=== PATIENT | male | born 1965 | race Caucasian/White ===

== ENCOUNTER 2017-12-06 12:57 | Inpatient (IN) | payer SELFPAY ==
[~2017-12-06] VITALS: Ht 175.3 cm; Wt 83.9 kg
[2017-12-06] MEDS ORDERED: IPRATRPIUM/ALBUTEROL 0.5/2.5MG 3 ML NEBU. NEB ONE (13:15)
[2017-12-06] MEDS ORDERED: methylPREDNISolone SOD SUCC PF 125 MG/2 ML VIAL. IM ONE (13:15)
--- NOTE | 2017-12-06 13:25 | PHYS DOC ---
Adult General Chief Complaint Chief Complaint: Congestion HPI HPI Patient is a 52 year old male with a history of hypertension and pack a day smoker presents to the ED complaining of headache and congestion 3 days. Patient states he has a history of sinus infections. Last sinus infection was approximately 1 year ago. Patient states he has high blood pressure. Been taking his medicine for the last year. States he has not been seen by his doctor. Patient's blood pressure is elevated in the ED. Patient states he used to take lisinopril 20 mg. Requesting prescription refill to restart him on his lisinopril. He states he took it without any complications in the past. Associated symptoms include rhinorrhea. Denies chest pain, shortness of breath, nausea/vomiting, dizziness, weakness, vision changes, abdominal pain or fever. Review of Systems Review of Systems Constitutional: Denies fever or chills [] Eyes: Denies change in visual acuity, redness, or eye pain [] HENT: Complains of nasal congestion. Denies sore throat [] Respiratory: Complains of cough. Denies shortness of breath [] Cardiovascular: No additional information not addressed in HPI [] GI: Denies abdominal pain, nausea, vomiting, bloody stools or diarrhea [] : Denies dysuria or hematuria [] Musculoskeletal: Denies back pain or joint pain [] Integument: Denies rash or skin lesions [] Neurologic: Complains of headache. Denies focal weakness or sensory changes [] All other systems were reviewed and found to be within normal limits, except as documented in this note. Current Medications Current Medications Current Medications Medications (Trade) Dose Ordered Sig/Leela Start Time Stop Time Status Last Admin Dose Admin Acetaminophen/ Hydrocodone Bitart (Lortab 5/325) 1 tab 1X ONCE 12/06/17 14:45 12/06/17 14:45 DC Albuterol/ Ipratropium (Duoneb) 3 ml 1X ONCE 12/06/17 13:15 12/06/17 13:18 DC 12/06/17 13:41 3 ML Lisinopril (Prinivil) 20 mg 1X ONCE 12/06/17 14:45 12/06/17 14:45 DC Methylprednisolone Sodium Succinate (SOLU-Medrol 125MG VIAL) 125 mg 1X ONCE 12/06/17 13:15 12/06/17 13:18 DC 12/06/17 14:09 125 MG Allergies Allergies Allergies Coded Allergies Type Severity Reaction Last Updated Verified No Known Drug Allergies 12/06/17 No Physical Exam Physical Exam Constitutional: Well developed, well nourished, no acute distress, non-toxic appearance. [] HENT: Normocephalic, atraumatic, bilateral external ears normal, oropharynx moist, no oral exudates, nose normal. mild pharyngeal erythema. Mild bilateral and maxillary sinus tenderness. [] Eyes: PERRLA, EOMI, conjunctiva normal, no discharge. [] Neck: Normal range of motion, no tenderness, supple, no stridor. [] Cardiovascular:Heart rate regular rhythm, no murmur [] Lungs & Thorax: Bilateral breath sounds. Mild wheezing bilaterally. [] Abdomen: Bowel sounds normal, soft, no tenderness, no masses, no pulsatile masses. [] Skin: Warm, dry, no erythema, no rash. [] Back: No tenderness, no CVA tenderness. [] Extremities: No tenderness, no cyanosis, no clubbing, ROM intact, no edema. [] Neurologic: Alert and oriented X 3, normal motor function, normal sensory function, no focal deficits noted. [] Psychologic: Affect normal, judgement normal, mood normal. [] Current Patient Data Vital Signs Vital Signs Date Time Temp Pulse Resp B/P (MAP) Pulse Ox O2 Delivery O2 Flow Rate FiO2 12/06/17 14:10 92 16 198/121 (146) 98 Room Air 12/06/17 13:04 97.8 97.8 Lab Values Laboratory Tests Test 12/06/17 14:50 White Blood Count 10.0 x10^3/uL (4.0-11.0) Red Blood Count 4.66 x10^6/uL (4.30-5.70) Hemoglobin 14.4 g/dL (13.0-17.5) Hematocrit 41.8 % (39.0-53.0) Mean Corpuscular Volume 90 fL (79-100) Mean Corpuscular Hemoglobin 31 pg (25-35) Mean Corpuscular Hemoglobin Concent 34 g/dL (31-37) Red Cell Distribution Width 14.7 % (11.5-14.5) H Platelet Count 274 x10^3/uL (140-400) Neutrophils (%) (Auto) 65 % (31-73) Lymphocytes (%) (Auto) 25 % (24-48) Monocytes (%) (Auto) 7 % (0-9) Eosinophils (%) (Auto) 3 % (0-3) Basophils (%) (Auto) 1 % (0-3) Neutrophils # (Auto) 6.5 x10^3uL (1.8-7.7) Lymphocytes # (Auto) 2.5 x10^3/uL (1.0-4.8) Monocytes # (Auto) 0.6 x10^3/uL (0.0-1.1) Eosinophils # (Auto) 0.3 x10^3/uL (0.0-0.7) Basophils # (Auto) 0.1 x10^3/uL (0.0-0.2) Sodium Level 138 mmol/L (136-145) Potassium Level 3.9 mmol/L (3.5-5.1) Chloride Level 102 mmol/L (98-107) Carbon Dioxide Level 25 mmol/L (21-32) Anion Gap 11 (6-14) Blood Urea Nitrogen 24 mg/dL (8-26) Creatinine 1.3 mg/dL (0.7-1.3) Estimated GFR (Cockcroft-Gault) 57.7 BUN/Creatinine Ratio 18 (6-20) Glucose Level 105 mg/dL (70-99) H Calcium Level 9.0 mg/dL (8.5-10.1) Total Bilirubin 0.3 mg/dL (0.2-1.0) Aspartate Amino Transferase (AST) 21 U/L (15-37) Alanine Aminotransferase (ALT) 27 U/L (16-63) Alkaline Phosphatase 140 U/L (46-116) H Total Protein 7.6 g/dL (6.4-8.2) Albumin 3.8 g/dL (3.4-5.0) Albumin/Globulin Ratio 1.0 (1.0-1.7) Laboratory Tests 12/06/17 14:50 Laboratory Tests 12/06/17 14:50 EKG EKG [] Radiology/Procedures Radiology/Procedures PROCEDURE: CT HEAD WO CONTRAST CT of the head without contrast, 12/06/2017: HISTORY: Headache. CT of the head without contrast, 12/06/2017: HISTORY: Headache Comparison is made to a study from 02/18/2008. There are new patchy areas of decreased density in the deep white matter bilaterally compatible with chronic ischemic change. There is a new small focus of decreased density in the left jordan. Decreased density has also developed inferiorly in the right occipital lobe. This involves the [place] and white matter. This has the appearance of a more recent process such as active edema or a subacute infarct. No acute intracranial hemorrhage is evident. The ventricles are within normal limits in size. There is no shift of the midline structures. IMPRESSION: 1. Moderate bilateral white matter lucencies have developed suggesting chronic ischemic change. 2. New small left pontine lucency compatible with an old infarct. 3. New right inferior occipital lobe lucency with diagnostic considerations including a subacute infarct or edema due to a neoplastic or infectious process. MR scanning with gadolinium is suggested for further evaluation, if clinically indicated.[] Course & Med Decision Making Course & Med Decision Making Pertinent Labs and Imaging studies reviewed. (See chart for details) []Discussed imaging findings with patient. No focal neuro deficits. Discussed case with Dr. Greene. Agrees to admission and further management of patient. Patient stable for admission. Neuro consult placed. Staff Physician Addendum: I was working in the ER during the course of this patient's visit. I was available for consultation as needed . Reviewed and are con head CT. Patient initially was presenting in the urgent care area of this emergency room with a chief complaint of sinus congestion. BP was elevated resulting in a head CT which showed the above findings patient had no obvious stigmata of an acute stroke. Patient did want to leave AGAINST MEDICAL ADVICE. I did speak with the patient and convinced him to stay. Dragon Disclaimer Dragon Disclaimer This electronic medical record was generated, in whole or in part, using a voice recognition dictation system. Departure Departure Impression: Primary Impression: Headache Additional Impression: Brain mass Disposition: ADMITTED INPATIENT Admitting Physician: Shantel Greene Condition: STABLE Referrals: NO PCP (PCP) Problem Qualifiers SEBASTIAN RODRÍGUEZ Dec 06, 2017 13:25 ADELE ZEPEDA MD Dec 08, 2017 06:27
--- NOTE | 2017-12-06 13:39 | RAD ---
AP and Lateral Views of the Chest 12/06/2017 1:19 PM Indication: cough since Wednesday Comparison: Chest radiograph February 21, 2009 Findings: There is no focal consolidation or infiltrate identified. The cardiomediastinal silhouette is within normal limits. Calcified mediastinal lymph nodes are similar. Heart size is normal. No acute osseous abnormalities are identified. Impression: No evidence of acute cardiopulmonary process. Electronically signed by: Elie Posadas MD (12/06/2017 1:35 PM) [id number]
--- NOTE | 2017-12-06 14:32 | RAD ---
CT of the head without contrast, 12/06/2017: HISTORY: Headache. CT of the head without contrast, 12/06/2017: HISTORY: Headache Comparison is made to a study from 02/18/2008. There are new patchy areas of decreased density in the deep white matter bilaterally compatible with chronic ischemic change. There is a new small focus of decreased density in the left jordan. Decreased density has also developed inferiorly in the right occipital lobe. This involves the [place] and white matter. This has the appearance of a more recent process such as active edema or a subacute infarct. No acute intracranial hemorrhage is evident. The ventricles are within normal limits in size. There is no shift of the midline structures. IMPRESSION: 1. Moderate bilateral white matter lucencies have developed suggesting chronic ischemic change. 2. New small left pontine lucency compatible with an old infarct. 3. New right inferior occipital lobe lucency with diagnostic considerations including a subacute infarct or edema due to a neoplastic or infectious process. MR scanning with gadolinium is suggested for further evaluation, if clinically indicated. PQRS Compliance Statement: One or more of the following individualized dose reduction techniques were utilized for this examination: 1. Automated exposure control 2. Adjustment of the mA and/or kV according to patient size 3. Use of iterative reconstruction technique Electronically signed by: Mike Potter MD (12/06/2017 2:29 PM) [facility]
[2017-12-06] MEDS ORDERED: LISINOPRIL 10 MG TABLET PO ONE (14:45)
[2017-12-06] MEDS ORDERED: HYDROcodone/APAP 5/325MG 1 TAB TABLET PO ONE (14:45)
[2017-12-06 15:00] LABS: BASO # 0.1 x10^3/uL (0.0-0.2); BASO % 1 % (0-3); EOS # 0.3 x10^3/uL (0.0-0.7); EOS % 3 % (0-3); HEMATOCRIT 41.8 % (39.0-53.0); HEMOGLOBIN 14.4 g/dL (13.0-17.5); LYMPH # 2.5 x10^3/uL (1.0-4.8); LYMPH % 25 % (24-48); MEAN CORPUSCULAR HEMOGLOBIN 31 pg (25-35); MEAN CORPUSCULAR HGB CONC 34 g/dL (31-37); MEAN CORPUSCULAR VOLUME 90 fL (79-100); MONO # 0.6 x10^3/uL (0.0-1.1); MONO % 7 % (0-9); NEUT # 6.5 x10^3uL (1.8-7.7); NEUT % 65 % (31-73); PLATELET COUNT 274 x10^3/uL (140-400); RED BLOOD COUNT 4.66 x10^6/uL (4.30-5.70); RED CELL DISTRIBUTION WIDTH 14.7 % (11.5-14.5)
[2017-12-06 15:09] LABS: CREATININE 1.3 mg/dL (0.7-1.3); GFR 57.7; POTASSIUM 3.9 mmol/L (3.5-5.1)
[2017-12-06 15:14] LABS: ALBUMIN 3.8 g/dL (3.4-5.0); TOTAL BILIRUBIN 0.3 mg/dL (0.2-1.0); TOTAL PROTEIN 7.6 g/dL (6.4-8.2)
[2017-12-06] MEDS ORDERED: ONDANSETRON PF 4 MG/2 ML VIAL. IV PRN ×2 (15:30→15:45)
[2017-12-06] MEDS ORDERED: ACETAMINOPHEN 325 MG TABLET. PO PRN ×2 (15:30→18:00)
[2017-12-06] MEDS ORDERED: fentaNYL PF VIAL 100 MCG/2 ML VIAL IV PRN ×2 (15:30→15:45)
[2017-12-06] MEDS: CETIRIZINE HCL 10 MG TABLET. PO SCH (15:45)
[2017-12-06] MEDS ORDERED: LABETALOL 20 MG/4 ML DISP.SYRIN. IVP PRN (15:45)
[2017-12-06] MEDS ORDERED: HYDROcodone/APAP 5/325MG 1 TAB TABLET PO PRN (15:45)
[2017-12-06] MEDS ORDERED: ASPIRIN ENTERIC COATED 325 MG TABLET.DR. PO ONE (15:45)
[2017-12-06] MEDS ORDERED: diphenhydrAMINE HCL 25 MG CAPSULE PO PRN (15:45)
--- NOTE | 2017-12-06 15:45 | PDOC1 ---
History and Physical Date of Admission Date of Admission DATE: 12/06/17 TIME: 15:39 Identification/Chief Complaint Chief Complaint Sinus congestion and headache Source Source: Caregiver, Chart review, Patient History of Present Illness History of Present Illness 52-year-old male who basically came to the emergency room because of sinus congestion and headache. No fevers. Labs are all okay. But on CAT scan of the head showed the following 1. Moderate bilateral white matter lucencies have developed suggesting chronic ischemic change. 2. New small left pontine lucency compatible with an old infarct. 3. New right inferior occipital lobe lucency with diagnostic considerations including a subacute infarct or edema due to a neoplastic or infectious process. MR scanning with gadolinium is suggested for further evaluation, if clinically indicated. Advised admission to further delineate the abnormal CAT scan and get an MRI. As I see him at ER, he was crying on the phone with his family, he initially wanted to leave AMA, he wanted his family to be here during his workup. But after education counseling, he decided to stay. We will consult neurology have an MRI. He has no focal neuro deficits. Neuro exam is totally unremarkable. He might have had a stroke in the past he claims. I'm still waiting on home meds whether he is on aspirin or anything as such. Again neuro exam nonfocal. Blood pressure is on the high side 190 systolic, but he is worked up. He did get lisinopril at the emergency room - we will wait for response Did get Solu-Medrol 125 for the sinus symptoms. I will start some flonase and H2 antag too Past Medical History Cardiovascular: HTN Past Surgical History Past Surgical History: No pertinent history Family History Family History: Hypertension Social History Smoke: No ALCOHOL: none Drugs: None Current Problem List Problem List Problems Medical Problems: (1) Brain mass Status: Acute (2) Headache Status: Acute Current Medications Current Medications Current Medications Methylprednisolone Sodium Succinate (SOLU-Medrol 125MG VIAL) 125 mg 1X ONCE IM Last administered on 12/06/17at 14:09; Start 12/06/17 at 13:15; Stop 12/06/17 at 13:18; Status DC Albuterol/ Ipratropium (Duoneb) 3 ml 1X ONCE NEB Last administered on at 13:41; Start 12/06/17 at 13:15; Stop 9/24/18 at 13:18; Status DC Lisinopril (Prinivil) 20 mg 1X ONCE PO ; Start 12/06/17 at 14:45; Stop at 14:45; Status DC Acetaminophen/ Hydrocodone Bitart (Lortab 5/325) 1 tab 1X ONCE PO ; Start 12/06 at 14:45; Stop 12/06/17 at 14:45; Status DC Ondansetron HCl (Zofran) 4 mg PRN Q8HRS PRN IV NAUSEA/VOMITING; Start 12/06/17 at 15:30; Stop 12/07/17 at 15:29 Fentanyl Citrate (Fentanyl 2ml Vial) 50 mcg PRN Q1HR PRN IV PAIN; Start at 15:30; Stop 12/07/17 at 15:29 Acetaminophen (Tylenol) 650 mg PRN Q4HRS PRN PO FEVER; Start 12/06/17 at 15:30 ; Stop 12/07/17 at 15:29 Allergies Allergies: Coded Allergies: No Known Drug Allergies (Unverified , 12/06/17) ROS Review of System sinus headache, sinus congestion otherwise rest of ROS 14 point negative Physical Exam General: Alert, Oriented X3, Cooperative, No acute distress HEENT: Atraumatic, PERRLA, EOMI Lungs: Clear to auscultation, Normal air movement Heart: S1S2, RRR, no thrills, no rubs, no gallops, no murmurs Cardiovascular: S1, S2 Abdomen: Normal bowel sounds, Soft, No tenderness, No hepatosplenomegaly, No masses Male Genitals Exam: normal genitalia, normal prostate Rectal Exam: not examined Extremities: No clubbing, No cyanosis, No edema, Normal pulses, No tenderness/ swelling Skin: No rashes, No breakdown, No significant lesion Neuro: Normal gait, Normal speech, Strength at 5/5 X4 ext, Normal tone, Sensation intact, Cranial nerves 3-12 NL, Reflexes 2+ Psych/Mental Status: Mental status NL, Mood NL Vitals Vitals Vital Signs Date Time Temp Pulse Resp B/P (MAP) Pulse Ox O2 Delivery O2 Flow Rate FiO2 12/06/17 14:10 92 16 198/121 (146) 98 Room Air 12/06/17 13:04 97.8 97.8 Labs Labs Laboratory Tests Test 9/24/18 14:50 White Blood Count 10.0 x10^3/uL (4.0-11.0) Red Blood Count 4.66 x10^6/uL (4.30-5.70) Hemoglobin 14.4 g/dL (13.0-17.5) Hematocrit 41.8 % (39.0-53.0) Mean Corpuscular Volume 90 fL (79-100) Mean Corpuscular Hemoglobin 31 pg (25-35) Mean Corpuscular Hemoglobin Concent 34 g/dL (31-37) Red Cell Distribution Width 14.7 % (11.5-14.5) Platelet Count 274 x10^3/uL (140-400) Neutrophils (%) (Auto) 65 % (31-73) Lymphocytes (%) (Auto) 25 % (24-48) Monocytes (%) (Auto) 7 % (0-9) Eosinophils (%) (Auto) 3 % (0-3) Basophils (%) (Auto) 1 % (0-3) Neutrophils # (Auto) 6.5 x10^3uL (1.8-7.7) Lymphocytes # (Auto) 2.5 x10^3/uL (1.0-4.8) Monocytes # (Auto) 0.6 x10^3/uL (0.0-1.1) Eosinophils # (Auto) 0.3 x10^3/uL (0.0-0.7) Basophils # (Auto) 0.1 x10^3/uL (0.0-0.2) Sodium Level 138 mmol/L (136-145) Potassium Level 3.9 mmol/L (3.5-5.1) Chloride Level 102 mmol/L (98-107) Carbon Dioxide Level 25 mmol/L (21-32) Anion Gap 11 (6-14) Blood Urea Nitrogen 24 mg/dL (8-26) Creatinine 1.3 mg/dL (0.7-1.3) Estimated GFR (Cockcroft-Gault) 57.7 BUN/Creatinine Ratio 18 (6-20) Glucose Level 105 mg/dL (70-99) Calcium Level 9.0 mg/dL (8.5-10.1) Total Bilirubin 0.3 mg/dL (0.2-1.0) Aspartate Amino Transf (AST/SGOT) 21 U/L (15-37) Alanine Aminotransferase (ALT/SGPT) 27 U/L (16-63) Alkaline Phosphatase 140 U/L (46-116) Total Protein 7.6 g/dL (6.4-8.2) Albumin 3.8 g/dL (3.4-5.0) Albumin/Globulin Ratio 1.0 (1.0-1.7) Laboratory Tests Test 12/06/17 14:50 White Blood Count 10.0 x10^3/uL (4.0-11.0) Red Blood Count 4.66 x10^6/uL (4.30-5.70) Hemoglobin 14.4 g/dL (13.0-17.5) Hematocrit 41.8 % (39.0-53.0) Mean Corpuscular Volume 90 fL (79-100) Mean Corpuscular Hemoglobin 31 pg (25-35) Mean Corpuscular Hemoglobin Concent 34 g/dL (31-37) Red Cell Distribution Width 14.7 % (11.5-14.5) Platelet Count 274 x10^3/uL (140-400) Neutrophils (%) (Auto) 65 % (31-73) Lymphocytes (%) (Auto) 25 % (24-48) Monocytes (%) (Auto) 7 % (0-9) Eosinophils (%) (Auto) 3 % (0-3) Basophils (%) (Auto) 1 % (0-3) Neutrophils # (Auto) 6.5 x10^3uL (1.8-7.7) Lymphocytes # (Auto) 2.5 x10^3/uL (1.0-4.8) Monocytes # (Auto) 0.6 x10^3/uL (0.0-1.1) Eosinophils # (Auto) 0.3 x10^3/uL (0.0-0.7) Basophils # (Auto) 0.1 x10^3/uL (0.0-0.2) Sodium Level 138 mmol/L (136-145) Potassium Level 3.9 mmol/L (3.5-5.1) Chloride Level 102 mmol/L (98-107) Carbon Dioxide Level 25 mmol/L (21-32) Anion Gap 11 (6-14) Blood Urea Nitrogen 24 mg/dL (8-26) Creatinine 1.3 mg/dL (0.7-1.3) Estimated GFR (Cockcroft-Gault) 57.7 BUN/Creatinine Ratio 18 (6-20) Glucose Level 105 mg/dL (70-99) Calcium Level 9.0 mg/dL (8.5-10.1) Total Bilirubin 0.3 mg/dL (0.2-1.0) Aspartate Amino Transf (AST/SGOT) 21 U/L (15-37) Alanine Aminotransferase (ALT/SGPT) 27 U/L (16-63) Alkaline Phosphatase 140 U/L (46-116) Total Protein 7.6 g/dL (6.4-8.2) Albumin 3.8 g/dL (3.4-5.0) Albumin/Globulin Ratio 1.0 (1.0-1.7) VTE Prophylaxis Ordered VTE Prophylaxis Devices: Yes VTE Pharmacological Prophylaxi: Yes Assessment/Plan Assessment/Plan Sinus congestion/sinus headache Abnormal CT head differentials include new or subacute stroke versus neoplastic process 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
[2017-12-06] MEDS: IPRATRPIUM/ALBUTEROL 0.5/2.5MG 3 ML NEBU. NEB SCH ×2 (16:00→21:00)
[2017-12-06] MEDS ORDERED: GADOBUTROL 7.5 MMOL/7.5 ML VIAL IV ONE (16:15)
[2017-12-06 17:00] VITALS: BP 188/100
--- NOTE | 2017-12-06 17:16 | RAD ---
MRI of the Brain without and with Contrast 12/06/2017 Clinical History: Weakness and slurred speech. Low-attenuation lesion seen involving the right occipital lobe on a CT scan of the head from earlier today suspicious for an acute stroke. Technique: Unenhanced T1-weighted sagittal and axial and FLAIR, T2-weighted, gradient echo and diffusion-weighted axial images of the brain were obtained. After the intravenous administration of 7.5 cc of Gadavist, enhanced T1-weighted axial and coronal images of the brain were obtained. Findings: Comparison is made to the patient's CT scan of the head dated 12/06/2017. There is generalized parenchymal atrophy. Patchy, confluent and multiple focal areas of abnormally increased signal intensity are seen within the periventricular and subcortical white matter of both cerebral hemispheres on the FLAIR and T2-weighted images consistent with areas of fairly extensive small vessel ischemic disease. Multiple old areas of lacunar type infarction are seen scattered throughout the white matter of both cerebral hemispheres, left greater than right, along with the left thalamus, the left aspect of the jordan, and throughout the cerebellum. These measure 3 mm to 6 mm in size. A wedge-shaped area of restricted diffusion is seen involving portions of the posterior right temporal lobe and the right occipital lobe. This measures 6.6 cm in greatest diameter. This corresponds to the abnormality seen on the patient's CT scan. It is consistent with an area of acute ischemia/infarction. There is mild surrounding edema without significant mass effect. A smaller area of restricted diffusion is seen involving the periventricular white matter of the left occipital lobe. This measures 1.2 cm in greatest diameter. It is consistent with an area of acute ischemia/infarction. There is mild surrounding edema without evidence of significant mass effect. No additional acute parenchymal abnormality is seen. No extra-axial fluid collection is noted. Mild mucosal thickening is seen scattered throughout the paranasal sinuses. Normal flow voids are seen within the major vascular structures surrounding the brain parenchyma. IMPRESSION: Areas of acute ischemia/infarction are seen involving the right posterior temporal/occipital lobe and the periventricular white matter of the left occipital lobe as outlined above. There is mild surrounding edema without evidence of significant mass effect. Electronically signed by: Sung Garay MD (12/06/2017 5:12 PM) [id number]
[2017-12-06] MEDS ORDERED: ASPIRIN 300 MG SUPP.RECT PR PRN (18:00)
[2017-12-06] MEDS ORDERED: ACETAMINOPHEN 650 MG SUPP.RECT. PR PRN (18:00)
[2017-12-06] MEDS ORDERED: IOHEXOL 300 MG/ML 100ML VIAL. IV ONE (18:30)
[2017-12-06] MEDS ORDERED: CONTRAST GIVEN. MC PRN (18:45)
[2017-12-06 19:00] VITALS: BP 174/92
[2017-12-06 22:46] VITALS: BP 162/87
[2017-12-07 03:00] VITALS: BP 146/84
[2017-12-07 05:50] LABS: BASO % 0 % (0-3); EOS % 0 % (0-3); HEMATOCRIT 39.5 % (39.0-53.0); HEMOGLOBIN 13.5 g/dL (13.0-17.5); LYMPH # 0.9 x10^3/uL (1.0-4.8); LYMPH % 6 % (24-48); MEAN CORPUSCULAR HEMOGLOBIN 31 pg (25-35); MEAN CORPUSCULAR HGB CONC 34 g/dL (31-37); MEAN CORPUSCULAR VOLUME 90 fL (79-100); MONO # 0.3 x10^3/uL (0.0-1.1); MONO % 2 % (0-9); NEUT # 13.4 x10^3uL (1.8-7.7); NEUT % 92 % (31-73); PLATELET COUNT 273 x10^3/uL (140-400); RED BLOOD COUNT 4.41 x10^6/uL (4.30-5.70); RED CELL DISTRIBUTION WIDTH 14.5 % (11.5-14.5); WHITE BLOOD COUNT 14.7 x10^3/uL (4.0-11.0)
[2017-12-07 06:15] LABS: ALBUMIN 3.4 g/dL (3.4-5.0); ALBUMIN/GLOBULIN RATIO 0.9 (1.0-1.7); CALCIUM 9.2 mg/dL (8.5-10.1); CREATININE 1.2 mg/dL (0.7-1.3); GFR 63.3; POTASSIUM 4.1 mmol/L (3.5-5.1); TOTAL BILIRUBIN 0.3 mg/dL (0.2-1.0); TOTAL PROTEIN 7.2 g/dL (6.4-8.2)
[2017-12-07 06:16] LABS: CHOLESTEROL/HDL RATIO 3.4
[2017-12-07 06:52] LABS: % BANDS 14 % (0-9); % LYMPHS 4 % (24-48); % MONOS 4 % (0-10); % SEGS 78 % (35-66); PLT ESTIMATE ADEQUATE (ADEQUATE)
[2017-12-07 07:53] VITALS: BP 170/93
[2017-12-07] MEDS ORDERED: ASPIRIN ENTERIC COATED 325 MG TABLET.DR. PO SCH ×2 (08:00)
[2017-12-07] MEDS: IPRATRPIUM/ALBUTEROL 0.5/2.5MG 3 ML NEBU. NEB SCH (08:00)
[2017-12-07] MEDS: CETIRIZINE HCL 10 MG TABLET. PO SCH (08:23)
--- NOTE | 2017-12-07 08:34 | RAD ---
CTA of the head and neck with contrast, 12/06/2017: HISTORY: CVA Multidetector CT imaging was performed following an IV bolus injection of iodinated contrast material. The origins of the cervicocephalic arteries from the aortic arch are widely patent. The common carotid arteries in the neck are widely patent. There is mild calcific plaquing in the proximal right internal carotid artery causing approximately 30-40 percent diameter narrowing. The internal carotid artery in the upper neck is quite tortuous. The distal right internal carotid artery is widely patent up through the level the [place]. The right anterior cerebral and middle cerebral arteries and their major branches are unremarkable. There is no significant atherosclerotic narrowing at the left carotid bifurcation. The left internal carotid artery in the upper neck is also quite tortuous and redundant. The left internal carotid artery is widely patent distally up through the level of the [place]. The left anterior cerebral and middle cerebral arteries and their major branches are unremarkable. Both vertebral arteries in the neck are widely patent up through their junction with the basilar artery. The basilar and posterior cerebral arteries are unremarkable. Moderate emphysematous changes are noted in the upper lobes. Moderate multilevel degenerative changes are present in the cervical spine. IMPRESSION: 1. Mild calcific plaquing involving the right proximal internal carotid artery with only mild associated luminal narrowing. 2. No major intracranial arterial occlusion or abnormality is detected. PQRS Compliance Statement: One or more of the following individualized dose reduction techniques were utilized for this examination: 1. Automated exposure control 2. Adjustment of the mA and/or kV according to patient size 3. Use of iterative reconstruction technique Electronically signed by: Mike Potter MD (12/07/2017 8:30 AM) [facility]
[2017-12-07] MEDS ORDERED: hydroCHLOROthiazide 12.5 MG CAPSULE PO SCH (09:00)
[2017-12-07] MEDS ORDERED: FLUTICASONE 50MCG/NASAL SPRAY 16GM BOTTLE. NS SCH (09:00)
[2017-12-07] MEDS ORDERED: LISINOPRIL 10 MG TABLET PO SCH (09:00)
[2017-12-07] MEDS ORDERED: hydroCHLOROthiazide 12.5 MG CAPSULE PO ONE (09:30)
[2017-12-07] MEDS ORDERED: LISINOPRIL 10 MG TABLET PO ONE (09:30)
--- NOTE | 2017-12-07 10:32 | CARD ---
MR#: [id number] Date of Study: 12/07/2017 Ordering Physician: RUCHI MAYO, Referring Physician: YEISON HAY Tech: Evelyn Dempsey [facility] APPROVED REPORT EXAM: Two-dimensional and M-mode echocardiogram with Doppler and color Doppler. Other Information Quality : Good INDICATION CVA/TIA Echo Enhancing Agent Agent/Amount Used: Agitated Saline 8mL 2D DIMENSIONS RVDd2.9 (2.9-3.5cm)Left Atrium(2D)3.8 (1.6-4.0cm) IVSd1.5 (0.7-1.1cm)Aortic Root(2D)3.0 (2.0-3.7cm) LVDd4.6 (3.9-5.9cm)LVOT Diameter2.3 (1.8-2.4cm) PWd1.6 (0.7-1.1cm)LVDs2.7 (2.5-4.0cm) FS (%) 30.0 %SV69.6 ml LVEF(%)60.0 (>50%) Aortic Valve AoV Peak Anton.171.7cm/sAoV VTI32.7cm AO Peak GR.11.8mmHgLVOT Peak Anton.105.0cm/s LVOT VTI 20.28cmAO Mean GR.6mmHg ALYSA (VMAX)2.69up6ICL (VTI)2.48cm2 Mitral Valve MV E Hthvcqlv23.8cm/sMV DECEL [id number] MV A Xrltfrev42.4cm/sMV QDQ38pc E/A Ratio0.9MVA (PHT)2.85cm2 TDI E/Lateral E'10.4E/Medial E'11.2 Pulmonary Vein S1 Muuyoezh00.1cm/sD2 Cjkctcqk11.4cm/s LEFT VENTRICLE The left ventricle is normal size. There is mild concentric left ventricular hypertrophy. The left ve ntricular systolic function is normal. The Ejection Fraction is 55-60%. There is normal LV segmental wall motion. Transmitral Doppler flow pattern is Grade I-abnormal relaxation pattern. RIGHT VENTRICLE The right ventricle is normal size. The right ventricular systolic function is normal. ATRIA The left atrium size is normal. The right atrium size is normal. The interatrial septum is intact wit h no evidence for an atrial septal defect or patent foramen ovale as noted on 2-D or Doppler imaging. Injection of bubbles documented no interatrial shunt. AORTIC VALVE The aortic valve is normal in structure and function. Doppler and Color Flow revealed no significant aortic regurgitation. There is no significant aortic valvular stenosis. MITRAL VALVE The mitral valve is normal in structure and function. There is no evidence of mitral valve prolapse. There is no mitral valve stenosis. Doppler and Color-flow revealed trace mitral regurgitation. TRICUSPID VALVE The tricuspid valve is normal in structure and function. Doppler and Color Flow revealed no tricuspid valve regurgitation noted. There is no tricuspid valve stenosis. PULMONIC VALVE The pulmonic valve is not well visualized. Doppler and Color Flow revealed no pulmonic valvular regur gitation. There is no pulmonic valvular stenosis. GREAT VESSELS The aortic root is normal in size. The ascending aorta is normal in size. The IVC is normal in size a nd collapses >50% with inspiration. PERICARDIAL EFFUSION There is no evidence of significant pericardial effusion. Critical Notification Critical Value: No <Conclusion> The left ventricular systolic function is normal. The Ejection Fraction is 55-60%. There is normal LV segmental wall motion. Transmitral Doppler flow pattern is Grade I-abnormal relaxation pattern. Doppler and Color-flow revealed trace mitral regurgitation. There is no evidence of significant pericardial effusion. Injection of bubbles documented no interatrial shunt. Signed by : Pavel Thompson, Electronically Approved : 12/07/2017 10:30:53
--- NOTE | 2017-12-07 10:33 | PDOC2 ---
NEUROLOGY CONSULT Date of Admission Date of Admission DATE: 12/07/17 TIME: 10:23 Reason for Consult Reason for Consult: Stroke Referring Physician Referring Physician: Dr. Greene Source Source: Caregiver, Chart review, Patient History of Present Illness History of Present Illness The patient is a 52-year-old right-handed male who complained of blurred vision and headache starting last weekend. 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 He had a CT of the head suspicious for stroke versus neoplasm, with follow-up MRI as reviewed below. He denies any prior history of stroke, seizure , or head injury. He denies headaches, focal numbness or weakness, dysarthria, or dysphagia. He thinks his vision is better this morning. :He has not seen a primary physician in several years. He does know he has a long history of hypertension. Past Medical History Cardiovascular: HTN Musculoskeletal: Other ( fractures) Past Surgical History Past Surgical History: Other (Left wrist fusion) Family History Family History: Cancer, Other ( Alzheimer's) Social History Social History , living arrangements as described above, drives a dump truck, smokes less than a pack of cigarettes per day, occasional alcohol, no street drugs Current Medications Current Medications Current Medications Methylprednisolone Sodium Succinate (SOLU-Medrol 125MG VIAL) 125 mg 1X ONCE IM Last administered on 12/06/17at 14:09; Start 12/06/17 at 13:15; Stop 12/06/17 at 13:18; Status DC Albuterol/ Ipratropium (Duoneb) 3 ml 1X ONCE NEB Last administered on at 13:41; Start 12/06/17 at 13:15; Stop 12/06/17 at 13:18; Status DC Lisinopril (Prinivil) 20 mg 1X ONCE PO ; Start 12/06/17 at 14:45; Stop at 14:45; Status DC Acetaminophen/ Hydrocodone Bitart (Lortab 5/325) 1 tab 1X ONCE PO ; Start 12/06 at 14:45; Stop 12/06/17 at 14:45; Status DC Ondansetron HCl (Zofran) 4 mg PRN Q8HRS PRN IV NAUSEA/VOMITING; Start 12/06/17 at 15:30; Stop 12/06/17 at 15:39; Status DC Fentanyl Citrate (Fentanyl 2ml Vial) 50 mcg PRN Q1HR PRN IV PAIN; Start at 15:30; Stop 12/06/17 at 15:39; Status DC Acetaminophen (Tylenol) 650 mg PRN Q4HRS PRN PO FEVER; Start 12/06/17 at 15:30 ; Stop 12/07/17 at 15:29 Fentanyl Citrate (Fentanyl 2ml Vial) 50 mcg PRN Q2HR PRN IV PAIN; Start at 15:45 Ondansetron HCl (Zofran) 4 mg PRN Q6HRS PRN IV NAUSEA/VOMITING; Start 12/06/17 at 15:45 Labetalol HCl (Normodyne Iv Push) 20 mg PRN Q2HR PRN IVP HYPERTENSION, SEE COMMENTS Last administered on 12/06/17at 16:00; Start 12/06/17 at 15:45 Lisinopril (Prinivil) 10 mg DAILY PO Last administered on 12/07/17at 08:24; Start 12/07/17 at 09:00; Stop 12/07/17 at 09:10; Status DC Hydrochlorothiazide (Microzide) 12.5 mg DAILY PO Last administered on at 08:23; Start 12/07/17 at 09:00; Stop 12/07/17 at 09:10; Status DC Acetaminophen/ Hydrocodone Bitart (Lortab 5/325) 1 tab PRN Q4HRS PRN PO PAIN; Start 12/06/17 at 15:45 Cetirizine HCl (ZyrTEC) 10 mg DAILY PO Last administered on 12/07/17at 08:23; Start 12/06/17 at 15:45 Fluticasone Propionate (Flonase) 2 spray DAILY NS ; Start 12/07/17 at 09:00 Diphenhydramine HCl (Benadryl) 25 mg PRN QHS PRN PO INSOMNIA; Start 12/06/17 at 15:45 Aspirin (Ecotrin) 325 mg 1X ONCE PO Last administered on 12/06/17at 18:15; Start 12/06/17 at 15:45; Stop 12/06/17 at 15:53; Status DC Aspirin (Ecotrin) 325 mg DAILYWBKFT PO Last administered on 12/07/17at 08:23; Start 12/07/17 at 08:00 Albuterol/ Ipratropium (Duoneb) 3 ml RTQID NEB Last administered on 12/06/17at 21:00; Start 12/06/17 at 16:00 Gadobutrol (Gadavist) 7.5 mmol 1X ONCE IV Last administered on 12/06/17at 16:30 ; Start 12/06/17 at 16:15; Stop 12/06/17 at 16:16; Status DC Acetaminophen (Tylenol) 650 mg PRN Q6HRS PRN PO TEMP > 100.4F; Start 12/06/17 at 18:00 Acetaminophen (Tylenol Supp) 650 mg PRN Q4HRS PRN TX TEMP > 100.4F; Start 12/06 at 18:00 Aspirin (Ecotrin) 325 mg DAILYWBKFT PO ; Start 12/07/17 at 08:00; Status UNV Aspirin (Aspirin) 300 mg PRN DAILY PRN TX IF UNABLE TO TAKE PO; Start 12/06/17 at 18:00 Iohexol (Omnipaque 300 Mg/ml) 75 ml 1X ONCE IV Last administered on 12/06/17at 18:30; Start 12/06/17 at 18:30; Stop 12/06/17 at 18:31; Status DC Info (CONTRAST GIVEN -- Rx MONITORING) 1 each PRN DAILY PRN MC SEE COMMENTS; Start 12/06/17 at 18:45; Stop 12/08/17 at 18:44 Hydrochlorothiazide (Hydrodiuril) 25 mg DAILY PO ; Start 12/08/17 at 09:00 Lisinopril (Prinivil) 20 mg DAILY PO ; Start 12/08/17 at 09:00 Lisinopril (Prinivil) 10 mg 1X ONCE PO ; Start 12/07/17 at 09:30; Stop at 09:31; Status DC Hydrochlorothiazide (Microzide) 12.5 mg 1X ONCE PO ; Start 12/07/17 at 09:30; Stop 12/07/17 at 09:31; Status DC Allergies Allergies: Coded Allergies: No Known Drug Allergies (Unverified , 12/06/17) ROS Review of System Negative for fevers, chills, weight loss, shortness of breath, chest pain, indigestion, hematochezia, melena, dysuria. Full 14-point review systems is negative. Physical Exam Physical Examination General: Well-developed, well-nourished, white male, in no acute distress HEENT: Normocephalic andatraumatic. Temporal arteriespulsatile and nontender. Neck: Supple without bruit, no meningismus Musculoskeletal: Stability:see neurologic. Gait exam:see neurologic. Tone:see neurologic. Strength:see neurologic. Neurological: Mental Status:intact, orientation, memory, attention span/concentration, language, fund of knowledge normal. Cranial Nerves:Pupils equal and reactive to light, extraocular movements areintact. Has some difficulty processing visual information, no clear field cut. Facial sensation is normal. There is no facial asymmetry. Vestibulo-ocular reflex is intact. Palate elvates and tongue protrudes in midline. All other cranial related problems are negative except as mentioned before.Reflexes:2+ and symmetric with flexor plantar responses. Motor:5/5 strength with normal tone and bulk. Coordination:Finger-nose finger and jlyk-zl-[id number] testing are normal. Rapid alternating movements and fine finger movements are intact. Gait:Normal, including tandem. Sensory:Normal pinprick, vibration, light touch, proprioception. Vitals VITALS Vital Signs Date Time Temp Pulse Resp B/P (MAP) Pulse Ox O2 Delivery O2 Flow Rate FiO2 12/07/17 08:24 77 170/93 12/07/17 08:00 Room Air 12/07/17 07:53 97.5 20 98 97.5 Labs Labs Laboratory Tests Test 12/06/17 14:50 12/07/17 04:40 White Blood Count 10.0 x10^3/uL (4.0-11.0) 14.7 x10^3/uL (4.0-11.0) Red Blood Count 4.66 x10^6/uL (4.30-5.70) 4.41 x10^6/uL (4.30-5.70) Hemoglobin 14.4 g/dL (13.0-17.5) 13.5 g/dL (13.0-17.5) Hematocrit 41.8 % (39.0-53.0) 39.5 % (39.0-53.0) Mean Corpuscular Volume 90 fL (79-100) 90 fL (79-100) Mean Corpuscular Hemoglobin 31 pg (25-35) 31 pg (25-35) Mean Corpuscular Hemoglobin Concent 34 g/dL (31-37) 34 g/dL (31-37) Red Cell Distribution Width 14.7 % (11.5-14.5) 14.5 % (11.5-14.5) Platelet Count 274 x10^3/uL (140-400) 273 x10^3/uL (140-400) Neutrophils (%) (Auto) 65 % (31-73) 92 % (31-73) Lymphocytes (%) (Auto) 25 % (24-48) 6 % (24-48) Monocytes (%) (Auto) 7 % (0-9) 2 % (0-9) Eosinophils (%) (Auto) 3 % (0-3) 0 % (0-3) Basophils (%) (Auto) 1 % (0-3) 0 % (0-3) Neutrophils # (Auto) 6.5 x10^3uL (1.8-7.7) 13.4 x10^3uL (1.8-7.7) Lymphocytes # (Auto) 2.5 x10^3/uL (1.0-4.8) 0.9 x10^3/uL (1.0-4.8) Monocytes # (Auto) 0.6 x10^3/uL (0.0-1.1) 0.3 x10^3/uL (0.0-1.1) Eosinophils # (Auto) 0.3 x10^3/uL (0.0-0.7) 0.0 x10^3/uL (0.0-0.7) Basophils # (Auto) 0.1 x10^3/uL (0.0-0.2) 0.0 x10^3/uL (0.0-0.2) Sodium Level 138 mmol/L (136-145) 137 mmol/L (136-145) Potassium Level 3.9 mmol/L (3.5-5.1) 4.1 mmol/L (3.5-5.1) Chloride Level 102 mmol/L (98-107) 101 mmol/L (98-107) Carbon Dioxide Level 25 mmol/L (21-32) 24 mmol/L (21-32) Anion Gap 11 (6-14) 12 (6-14) Blood Urea Nitrogen 24 mg/dL (8-26) 26 mg/dL (8-26) Creatinine 1.3 mg/dL (0.7-1.3) 1.2 mg/dL (0.7-1.3) Estimated GFR (Cockcroft-Gault) 57.7 63.3 BUN/Creatinine Ratio 18 (6-20) 22 (6-20) Glucose Level 105 mg/dL (70-99) 128 mg/dL (70-99) Calcium Level 9.0 mg/dL (8.5-10.1) 9.2 mg/dL (8.5-10.1) Total Bilirubin 0.3 mg/dL (0.2-1.0) 0.3 mg/dL (0.2-1.0) Aspartate Amino Transf (AST/SGOT) 21 U/L (15-37) 16 U/L (15-37) Alanine Aminotransferase (ALT/SGPT) 27 U/L (16-63) 23 U/L (16-63) Alkaline Phosphatase 140 U/L (46-116) 113 U/L (46-116) Total Protein 7.6 g/dL (6.4-8.2) 7.2 g/dL (6.4-8.2) Albumin 3.8 g/dL (3.4-5.0) 3.4 g/dL (3.4-5.0) Albumin/Globulin Ratio 1.0 (1.0-1.7) 0.9 (1.0-1.7) Segmented Neutrophils % 78 % (35-66) Band Neutrophils % 14 % (0-9) Lymphocytes % 4 % (24-48) Monocytes % 4 % (0-10) Platelet Estimate Adequate (ADEQUATE) Triglycerides Level 27 mg/dL (0-150) Cholesterol Level 138 mg/dL (0-200) LDL Cholesterol, Calculated 92 mg/dL (0-100) VLDL Cholesterol, Calculated 5 mg/dL (0-40) Non-HDL Cholesterol Calculated 97 mg/dL (0-129) HDL Cholesterol 41 mg/dL (40-60) Cholesterol/HDL Ratio 3.4 Laboratory Tests Test 12/06/17 14:50 12/07/17 04:40 White Blood Count 10.0 x10^3/uL (4.0-11.0) 14.7 x10^3/uL (4.0-11.0) Red Blood Count 4.66 x10^6/uL (4.30-5.70) 4.41 x10^6/uL (4.30-5.70) Hemoglobin 14.4 g/dL (13.0-17.5) 13.5 g/dL (13.0-17.5) Hematocrit 41.8 % (39.0-53.0) 39.5 % (39.0-53.0) Mean Corpuscular Volume 90 fL (79-100) 90 fL (79-100) Mean Corpuscular Hemoglobin 31 pg (25-35) 31 pg (25-35) Mean Corpuscular Hemoglobin Concent 34 g/dL (31-37) 34 g/dL (31-37) Red Cell Distribution Width 14.7 % (11.5-14.5) 14.5 % (11.5-14.5) Platelet Count 274 x10^3/uL (140-400) 273 x10^3/uL (140-400) Neutrophils (%) (Auto) 65 % (31-73) 92 % (31-73) Lymphocytes (%) (Auto) 25 % (24-48) 6 % (24-48) Monocytes (%) (Auto) 7 % (0-9) 2 % (0-9) Eosinophils (%) (Auto) 3 % (0-3) 0 % (0-3) Basophils (%) (Auto) 1 % (0-3) 0 % (0-3) Neutrophils # (Auto) 6.5 x10^3uL (1.8-7.7) 13.4 x10^3uL (1.8-7.7) Lymphocytes # (Auto) 2.5 x10^3/uL (1.0-4.8) 0.9 x10^3/uL (1.0-4.8) Monocytes # (Auto) 0.6 x10^3/uL (0.0-1.1) 0.3 x10^3/uL (0.0-1.1) Eosinophils # (Auto) 0.3 x10^3/uL (0.0-0.7) 0.0 x10^3/uL (0.0-0.7) Basophils # (Auto) 0.1 x10^3/uL (0.0-0.2) 0.0 x10^3/uL (0.0-0.2) Sodium Level 138 mmol/L (136-145) 137 mmol/L (136-145) Potassium Level 3.9 mmol/L (3.5-5.1) 4.1 mmol/L (3.5-5.1) Chloride Level 102 mmol/L (98-107) 101 mmol/L (98-107) Carbon Dioxide Level 25 mmol/L (21-32) 24 mmol/L (21-32) Anion Gap 11 (6-14) 12 (6-14) Blood Urea Nitrogen 24 mg/dL (8-26) 26 mg/dL (8-26) Creatinine 1.3 mg/dL (0.7-1.3) 1.2 mg/dL (0.7-1.3) Estimated GFR (Cockcroft-Gault) 57.7 63.3 BUN/Creatinine Ratio 18 (6-20) 22 (6-20) Glucose Level 105 mg/dL (70-99) 128 mg/dL (70-99) Calcium Level 9.0 mg/dL (8.5-10.1) 9.2 mg/dL (8.5-10.1) Total Bilirubin 0.3 mg/dL (0.2-1.0) 0.3 mg/dL (0.2-1.0) Aspartate Amino Transf (AST/SGOT) 21 U/L (15-37) 16 U/L (15-37) Alanine Aminotransferase (ALT/SGPT) 27 U/L (16-63) 23 U/L (16-63) Alkaline Phosphatase 140 U/L (46-116) 113 U/L (46-116) Total Protein 7.6 g/dL (6.4-8.2) 7.2 g/dL (6.4-8.2) Albumin 3.8 g/dL (3.4-5.0) 3.4 g/dL (3.4-5.0) Albumin/Globulin Ratio 1.0 (1.0-1.7) 0.9 (1.0-1.7) Segmented Neutrophils % 78 % (35-66) Band Neutrophils % 14 % (0-9) Lymphocytes % 4 % (24-48) Monocytes % 4 % (0-10) Platelet Estimate Adequate (ADEQUATE) Triglycerides Level 27 mg/dL (0-150) Cholesterol Level 138 mg/dL (0-200) LDL Cholesterol, Calculated 92 mg/dL (0-100) VLDL Cholesterol, Calculated 5 mg/dL (0-40) Non-HDL Cholesterol Calculated 97 mg/dL (0-129) HDL Cholesterol 41 mg/dL (40-60) Cholesterol/HDL Ratio 3.[address] head: Comparison is made to a study from 02/18/2008. There are new patchy areas of decreased density in the deep white matter bilaterally compatible with chronic ischemic change. There is a new small focus of decreased density in the left jordan. Decreased density has also developed inferiorly in the right occipital lobe. This involves the [place] and white matter. This has the appearance of a more recent process such as active edema or a subacute infarct. No acute intracranial hemorrhage is evident. The ventricles are within normal limits in size. There is no shift of the midline structures. IMPRESSION: 1. Moderate bilateral white matter lucencies have developed suggesting chronic ischemic change. 2. New small left pontine lucency compatible with an old infarct. 3. New right inferior occipital lobe lucency with diagnostic considerations including a subacute infarct or edema due to a neoplastic or infectious process. MR scanning with gadolinium is suggested for further evaluation, if clinically indicated. MRI brain: There is generalized parenchymal atrophy. Patchy, confluent and multiple focal areas of abnormally increased signal intensity are seen within the periventricular and subcortical white matter of both cerebral hemispheres on the FLAIR and T2-weighted images consistent with areas of fairly extensive small vessel ischemic disease. Multiple old areas of lacunar type infarction are seen scattered throughout the white matter of both cerebral hemispheres, left greater than right, along with the left thalamus, the left aspect of the jordan, and throughout the cerebellum. These measure 3 mm to 6 mm in size. A wedge-shaped area of restricted diffusion is seen involving portions of the posterior right temporal lobe and the right occipital lobe. This measures 6.6 cm in greatest diameter. This corresponds to the abnormality seen on the patient's CT scan. It is consistent with an area of acute ischemia/infarction. There is mild surrounding edema without significant mass effect. A smaller area of restricted diffusion is seen involving the periventricular white matter of the left occipital lobe. This measures 1.2 cm in greatest diameter. It is consistent with an area of acute ischemia/infarction. There is mild surrounding edema without evidence of significant mass effect. No additional acute parenchymal abnormality is seen. No extra-axial fluid collection is noted. Mild mucosal thickening is seen scattered throughout the paranasal sinuses. Normal flow voids are seen within the major vascular structures surrounding the brain parenchyma. IMPRESSION: Areas of acute ischemia/infarction are seen involving the right posterior temporal/occipital lobe and the periventricular white matter of the left occipital lobe as outlined above. There is mild surrounding edema without evidence of significant mass effect. Head/neck CTA: The origins of the cervicocephalic arteries from the aortic arch are widely patent. The common carotid arteries in the neck are widely patent. There is mild calcific plaquing in the proximal right internal carotid artery causing approximately 30-40 percent diameter narrowing. The internal carotid artery in the upper neck is quite tortuous. The distal right internal carotid artery is widely patent up through the level the [place]. The right anterior cerebral and middle cerebral arteries and their major branches are unremarkable. There is no significant atherosclerotic narrowing at the left carotid bifurcation. The left internal carotid artery in the upper neck is also quite tortuous and redundant. The left internal carotid artery is widely patent distally up through the level of the [place]. The left anterior cerebral and middle cerebral arteries and their major branches are unremarkable. Both vertebral arteries in the neck are widely patent up through their junction with the basilar artery. The basilar and posterior cerebral arteries are unremarkable. Moderate emphysematous changes are noted in the upper lobes. Moderate multilevel degenerative changes are present in the cervical spine. IMPRESSION: 1. Mild calcific plaquing involving the right proximal internal carotid artery with only mild associated luminal narrowing. 2. No major intracranial arterial occlusion or abnormality is detected. Assessment/Plan Assessment/Plan Impression: Strokes, right posterior temporal/occipital lobe and the periventricular white matter of the left occipital lobe, worrisome for cardio embolic phenomenon as CT angiogram does not show a source. Lipid profile is surprisingly normal Tobacco abuse, hypertension Recommendations: He was not a candidate for [place], he was far outside the window Aspirin No need for statin Full cardiac evaluation for embolic source with transesophageal echocardiogram and outpatient cardiac monitoring Rehabilitation modalities He cannot drive commercially at least until his follow-up appointment. It will be okay for him to travel to his daughter's upcoming wedding. Counseled the patient regarding smoking cessation, risk factor reduction, and to go to emergency department immediately next time if he has new symptoms. Thank you for letting me help with the patient's care. RUCHI MAYO MD Dec 07, 2017 10:33
--- NOTE | 2017-12-07 10:51 | PDOC ---
PROGRESS NOTES Chief Complaint Chief Complaint Sinus congestion/sinus headache Abnormal CT head differentials include new or subacute stroke versus neoplastic process History of old left pontine infarct New R occipital lobe lucency HTN urgency POA History of Present Illness History of Present Illness MRI of the brain does show acute stroke, no brain mass Patient wants to leave AMA Neurology has consulted cardiology, cards recommends YAIR and patient does not want to have anything done Blood pressure on the high side - I need to inc the 2 medications that I started yesterday he'll sign AMA papers I still did leave scripts for his blood pressure aspirin 325 for him to go home with Discussed with CAROL ANN Keita Neuro exam: non focal Vitals Vitals Vital Signs Date Time Temp Pulse Resp B/P (MAP) Pulse Ox O2 Delivery O2 Flow Rate FiO2 12/07/17 08:24 77 170/93 12/07/17 08:00 Room Air 12/07/17 07:53 97.5 20 98 97.5 Physical Exam General: Alert, Oriented X3, Cooperative, No acute distress Abdomen: Normal bowel sounds, Soft, No tenderness, No hepatosplenomegaly, No masses Extremities: No clubbing, No cyanosis, No edema, Normal pulses, No tenderness/ swelling Skin: No rashes, No breakdown, No significant lesion Labs LABS Laboratory Tests Test 12/06/17 14:50 12/07/17 04:40 White Blood Count 10.0 x10^3/uL (4.0-11.0) 14.7 x10^3/uL (4.0-11.0) Red Blood Count 4.66 x10^6/uL (4.30-5.70) 4.41 x10^6/uL (4.30-5.70) Hemoglobin 14.4 g/dL (13.0-17.5) 13.5 g/dL (13.0-17.5) Hematocrit 41.8 % (39.0-53.0) 39.5 % (39.0-53.0) Mean Corpuscular Volume 90 fL (79-100) 90 fL (79-100) Mean Corpuscular Hemoglobin 31 pg (25-35) 31 pg (25-35) Mean Corpuscular Hemoglobin Concent 34 g/dL (31-37) 34 g/dL (31-37) Red Cell Distribution Width 14.7 % (11.5-14.5) 14.5 % (11.5-14.5) Platelet Count 274 x10^3/uL (140-400) 273 x10^3/uL (140-400) Neutrophils (%) (Auto) 65 % (31-73) 92 % (31-73) Lymphocytes (%) (Auto) 25 % (24-48) 6 % (24-48) Monocytes (%) (Auto) 7 % (0-9) 2 % (0-9) Eosinophils (%) (Auto) 3 % (0-3) 0 % (0-3) Basophils (%) (Auto) 1 % (0-3) 0 % (0-3) Neutrophils # (Auto) 6.5 x10^3uL (1.8-7.7) 13.4 x10^3uL (1.8-7.7) Lymphocytes # (Auto) 2.5 x10^3/uL (1.0-4.8) 0.9 x10^3/uL (1.0-4.8) Monocytes # (Auto) 0.6 x10^3/uL (0.0-1.1) 0.3 x10^3/uL (0.0-1.1) Eosinophils # (Auto) 0.3 x10^3/uL (0.0-0.7) 0.0 x10^3/uL (0.0-0.7) Basophils # (Auto) 0.1 x10^3/uL (0.0-0.2) 0.0 x10^3/uL (0.0-0.2) Sodium Level 138 mmol/L (136-145) 137 mmol/L (136-145) Potassium Level 3.9 mmol/L (3.5-5.1) 4.1 mmol/L (3.5-5.1) Chloride Level 102 mmol/L (98-107) 101 mmol/L (98-107) Carbon Dioxide Level 25 mmol/L (21-32) 24 mmol/L (21-32) Anion Gap 11 (6-14) 12 (6-14) Blood Urea Nitrogen 24 mg/dL (8-26) 26 mg/dL (8-26) Creatinine 1.3 mg/dL (0.7-1.3) 1.2 mg/dL (0.7-1.3) Estimated GFR (Cockcroft-Gault) 57.7 63.3 BUN/Creatinine Ratio 18 (6-20) 22 (6-20) Glucose Level 105 mg/dL (70-99) 128 mg/dL (70-99) Calcium Level 9.0 mg/dL (8.5-10.1) 9.2 mg/dL (8.5-10.1) Total Bilirubin 0.3 mg/dL (0.2-1.0) 0.3 mg/dL (0.2-1.0) Aspartate Amino Transf (AST/SGOT) 21 U/L (15-37) 16 U/L (15-37) Alanine Aminotransferase (ALT/SGPT) 27 U/L (16-63) 23 U/L (16-63) Alkaline Phosphatase 140 U/L (46-116) 113 U/L (46-116) Total Protein 7.6 g/dL (6.4-8.2) 7.2 g/dL (6.4-8.2) Albumin 3.8 g/dL (3.4-5.0) 3.4 g/dL (3.4-5.0) Albumin/Globulin Ratio 1.0 (1.0-1.7) 0.9 (1.0-1.7) Segmented Neutrophils % 78 % (35-66) Band Neutrophils % 14 % (0-9) Lymphocytes % 4 % (24-48) Monocytes % 4 % (0-10) Platelet Estimate Adequate (ADEQUATE) Triglycerides Level 27 mg/dL (0-150) Cholesterol Level 138 mg/dL (0-200) LDL Cholesterol, Calculated 92 mg/dL (0-100) VLDL Cholesterol, Calculated 5 mg/dL (0-40) Non-HDL Cholesterol Calculated 97 mg/dL (0-129) HDL Cholesterol 41 mg/dL (40-60) Cholesterol/HDL Ratio 3.4 Review of Systems Review of Systems A 14 point ROS was completed with the following noted as positive: Other systems reviewed and negative. \CONSTITUTIONAL: No fever or chills EYES: No recent changes SKIN: No rash or itching CARDIOVASCULAR: No chest pain, syncope, palpitations, or edema RESPIRATORY: No SOB or cough GASTROINTESTINAL: No nausea, vomiting or abdominal pain NEUROLOGICAL: No headaches or weakness ENDOCRINE: No cold or heat intolerance GENITOURINARY: No urgency or frequency of urination MUSCULOSKELETAL: No back pain or joint pain LYMPHATICS: No enlarged lymph nodes PSYCHIATRIC: No anxiety or depression Assessment and Plan Assessmemt and Plan Problems Medical Problems: (1) Brain mass Status: Acute (2) Headache Status: Acute Comment Review of Relevant I have reviewed the following items barry (where applicable) has been applied. Labs Laboratory Tests Test 12/06/17 14:50 12/07/17 04:40 White Blood Count 10.0 x10^3/uL (4.0-11.0) 14.7 x10^3/uL (4.0-11.0) Red Blood Count 4.66 x10^6/uL (4.30-5.70) 4.41 x10^6/uL (4.30-5.70) Hemoglobin 14.4 g/dL (13.0-17.5) 13.5 g/dL (13.0-17.5) Hematocrit 41.8 % (39.0-53.0) 39.5 % (39.0-53.0) Mean Corpuscular Volume 90 fL (79-100) 90 fL (79-100) Mean Corpuscular Hemoglobin 31 pg (25-35) 31 pg (25-35) Mean Corpuscular Hemoglobin Concent 34 g/dL (31-37) 34 g/dL (31-37) Red Cell Distribution Width 14.7 % (11.5-14.5) 14.5 % (11.5-14.5) Platelet Count 274 x10^3/uL (140-400) 273 x10^3/uL (140-400) Neutrophils (%) (Auto) 65 % (31-73) 92 % (31-73) Lymphocytes (%) (Auto) 25 % (24-48) 6 % (24-48) Monocytes (%) (Auto) 7 % (0-9) 2 % (0-9) Eosinophils (%) (Auto) 3 % (0-3) 0 % (0-3) Basophils (%) (Auto) 1 % (0-3) 0 % (0-3) Neutrophils # (Auto) 6.5 x10^3uL (1.8-7.7) 13.4 x10^3uL (1.8-7.7) Lymphocytes # (Auto) 2.5 x10^3/uL (1.0-4.8) 0.9 x10^3/uL (1.0-4.8) Monocytes # (Auto) 0.6 x10^3/uL (0.0-1.1) 0.3 x10^3/uL (0.0-1.1) Eosinophils # (Auto) 0.3 x10^3/uL (0.0-0.7) 0.0 x10^3/uL (0.0-0.7) Basophils # (Auto) 0.1 x10^3/uL (0.0-0.2) 0.0 x10^3/uL (0.0-0.2) Sodium Level 138 mmol/L (136-145) 137 mmol/L (136-145) Potassium Level 3.9 mmol/L (3.5-5.1) 4.1 mmol/L (3.5-5.1) Chloride Level 102 mmol/L (98-107) 101 mmol/L (98-107) Carbon Dioxide Level 25 mmol/L (21-32) 24 mmol/L (21-32) Anion Gap 11 (6-14) 12 (6-14) Blood Urea Nitrogen 24 mg/dL (8-26) 26 mg/dL (8-26) Creatinine 1.3 mg/dL (0.7-1.3) 1.2 mg/dL (0.7-1.3) Estimated GFR (Cockcroft-Gault) 57.7 63.3 BUN/Creatinine Ratio 18 (6-20) 22 (6-20) Glucose Level 105 mg/dL (70-99) 128 mg/dL (70-99) Calcium Level 9.0 mg/dL (8.5-10.1) 9.2 mg/dL (8.5-10.1) Total Bilirubin 0.3 mg/dL (0.2-1.0) 0.3 mg/dL (0.2-1.0) Aspartate Amino Transf (AST/SGOT) 21 U/L (15-37) 16 U/L (15-37) Alanine Aminotransferase (ALT/SGPT) 27 U/L (16-63) 23 U/L (16-63) Alkaline Phosphatase 140 U/L (46-116) 113 U/L (46-116) Total Protein 7.6 g/dL (6.4-8.2) 7.2 g/dL (6.4-8.2) Albumin 3.8 g/dL (3.4-5.0) 3.4 g/dL (3.4-5.0) Albumin/Globulin Ratio 1.0 (1.0-1.7) 0.9 (1.0-1.7) Segmented Neutrophils % 78 % (35-66) Band Neutrophils % 14 % (0-9) Lymphocytes % 4 % (24-48) Monocytes % 4 % (0-10) Platelet Estimate Adequate (ADEQUATE) Triglycerides Level 27 mg/dL (0-150) Cholesterol Level 138 mg/dL (0-200) LDL Cholesterol, Calculated 92 mg/dL (0-100) VLDL Cholesterol, Calculated 5 mg/dL (0-40) Non-HDL Cholesterol Calculated 97 mg/dL (0-129) HDL Cholesterol 41 mg/dL (40-60) Cholesterol/HDL Ratio 3.4 Laboratory Tests Test 12/06/17 14:50 12/07/17 04:40 White Blood Count 10.0 x10^3/uL (4.0-11.0) 14.7 x10^3/uL (4.0-11.0) Red Blood Count 4.66 x10^6/uL (4.30-5.70) 4.41 x10^6/uL (4.30-5.70) Hemoglobin 14.4 g/dL (13.0-17.5) 13.5 g/dL (13.0-17.5) Hematocrit 41.8 % (39.0-53.0) 39.5 % (39.0-53.0) Mean Corpuscular Volume 90 fL (79-100) 90 fL (79-100) Mean Corpuscular Hemoglobin 31 pg (25-35) 31 pg (25-35) Mean Corpuscular Hemoglobin Concent 34 g/dL (31-37) 34 g/dL (31-37) Red Cell Distribution Width 14.7 % (11.5-14.5) 14.5 % (11.5-14.5) Platelet Count 274 x10^3/uL (140-400) 273 x10^3/uL (140-400) Neutrophils (%) (Auto) 65 % (31-73) 92 % (31-73) Lymphocytes (%) (Auto) 25 % (24-48) 6 % (24-48) Monocytes (%) (Auto) 7 % (0-9) 2 % (0-9) Eosinophils (%) (Auto) 3 % (0-3) 0 % (0-3) Basophils (%) (Auto) 1 % (0-3) 0 % (0-3) Neutrophils # (Auto) 6.5 x10^3uL (1.8-7.7) 13.4 x10^3uL (1.8-7.7) Lymphocytes # (Auto) 2.5 x10^3/uL (1.0-4.8) 0.9 x10^3/uL (1.0-4.8) Monocytes # (Auto) 0.6 x10^3/uL (0.0-1.1) 0.3 x10^3/uL (0.0-1.1) Eosinophils # (Auto) 0.3 x10^3/uL (0.0-0.7) 0.0 x10^3/uL (0.0-0.7) Basophils # (Auto) 0.1 x10^3/uL (0.0-0.2) 0.0 x10^3/uL (0.0-0.2) Sodium Level 138 mmol/L (136-145) 137 mmol/L (136-145) Potassium Level 3.9 mmol/L (3.5-5.1) 4.1 mmol/L (3.5-5.1) Chloride Level 102 mmol/L (98-107) 101 mmol/L (98-107) Carbon Dioxide Level 25 mmol/L (21-32) 24 mmol/L (21-32) Anion Gap 11 (6-14) 12 (6-14) Blood Urea Nitrogen 24 mg/dL (8-26) 26 mg/dL (8-26) Creatinine 1.3 mg/dL (0.7-1.3) 1.2 mg/dL (0.7-1.3) Estimated GFR (Cockcroft-Gault) 57.7 63.3 BUN/Creatinine Ratio 18 (6-20) 22 (6-20) Glucose Level 105 mg/dL (70-99) 128 mg/dL (70-99) Calcium Level 9.0 mg/dL (8.5-10.1) 9.2 mg/dL (8.5-10.1) Total Bilirubin 0.3 mg/dL (0.2-1.0) 0.3 mg/dL (0.2-1.0) Aspartate Amino Transf (AST/SGOT) 21 U/L (15-37) 16 U/L (15-37) Alanine Aminotransferase (ALT/SGPT) 27 U/L (16-63) 23 U/L (16-63) Alkaline Phosphatase 140 U/L (46-116) 113 U/L (46-116) Total Protein 7.6 g/dL (6.4-8.2) 7.2 g/dL (6.4-8.2) Albumin 3.8 g/dL (3.4-5.0) 3.4 g/dL (3.4-5.0) Albumin/Globulin Ratio 1.0 (1.0-1.7) 0.9 (1.0-1.7) Segmented Neutrophils % 78 % (35-66) Band Neutrophils % 14 % (0-9) Lymphocytes % 4 % (24-48) Monocytes % 4 % (0-10) Platelet Estimate Adequate (ADEQUATE) Triglycerides Level 27 mg/dL (0-150) Cholesterol Level 138 mg/dL (0-200) LDL Cholesterol, Calculated 92 mg/dL (0-100) VLDL Cholesterol, Calculated 5 mg/dL (0-40) Non-HDL Cholesterol Calculated 97 mg/dL (0-129) HDL Cholesterol 41 mg/dL (40-60) Cholesterol/HDL Ratio 3.4 Medications Current Medications Methylprednisolone Sodium Succinate (SOLU-Medrol 125MG VIAL) 125 mg 1X ONCE IM Last administered on 12/06/17at 14:09; Start 12/06/17 at 13:15; Stop 12/06/17 at 13:18; Status DC Albuterol/ Ipratropium (Duoneb) 3 ml 1X ONCE NEB Last administered on at 13:41; Start 12/06/17 at 13:15; Stop 12/06/17 at 13:18; Status DC Lisinopril (Prinivil) 20 mg 1X ONCE PO ; Start 12/06/17 at 14:45; Stop at 14:45; Status DC Acetaminophen/ Hydrocodone Bitart (Lortab 5/325) 1 tab 1X ONCE PO ; Start 12/06 at 14:45; Stop 12/06/17 at 14:45; Status DC Ondansetron HCl (Zofran) 4 mg PRN Q8HRS PRN IV NAUSEA/VOMITING; Start 12/06/17 at 15:30; Stop 12/06/17 at 15:39; Status DC Fentanyl Citrate (Fentanyl 2ml Vial) 50 mcg PRN Q1HR PRN IV PAIN; Start at 15:30; Stop 12/06/17 at 15:39; Status DC Acetaminophen (Tylenol) 650 mg PRN Q4HRS PRN PO FEVER; Start 12/06/17 at 15:30 ; Stop 12/07/17 at 15:29 Fentanyl Citrate (Fentanyl 2ml Vial) 50 mcg PRN Q2HR PRN IV PAIN; Start at 15:45 Ondansetron HCl (Zofran) 4 mg PRN Q6HRS PRN IV NAUSEA/VOMITING; Start 12/06/17 at 15:45 Labetalol HCl (Normodyne Iv Push) 20 mg PRN Q2HR PRN IVP HYPERTENSION, SEE COMMENTS Last administered on 12/06/17at 16:00; Start 12/06/17 at 15:45 Lisinopril (Prinivil) 10 mg DAILY PO Last administered on 12/07/17at 08:24; Start 12/07/17 at 09:00; Stop 12/07/17 at 09:10; Status DC Hydrochlorothiazide (Microzide) 12.5 mg DAILY PO Last administered on at 08:23; Start 12/07/17 at 09:00; Stop 12/07/17 at 09:10; Status DC Acetaminophen/ Hydrocodone Bitart (Lortab 5/325) 1 tab PRN Q4HRS PRN PO PAIN; Start 12/06/17 at 15:45 Cetirizine HCl (ZyrTEC) 10 mg DAILY PO Last administered on 12/07/17at 08:23; Start 12/06/17 at 15:45 Fluticasone Propionate (Flonase) 2 spray DAILY NS ; Start 12/07/17 at 09:00 Diphenhydramine HCl (Benadryl) 25 mg PRN QHS PRN PO INSOMNIA; Start 12/06/17 at 15:45 Aspirin (Ecotrin) 325 mg 1X ONCE PO Last administered on 12/06/17at 18:15; Start 12/06/17 at 15:45; Stop 12/06/17 at 15:53; Status DC Aspirin (Ecotrin) 325 mg DAILYWBKFT PO Last administered on 12/07/17at 08:23; Start 12/07/17 at 08:00 Albuterol/ Ipratropium (Duoneb) 3 ml RTQID NEB Last administered on 12/06/17at 21:00; Start 12/06/17 at 16:00 Gadobutrol (Gadavist) 7.5 mmol 1X ONCE IV Last administered on 12/06/17at 16:30 ; Start 12/06/17 at 16:15; Stop 12/06/17 at 16:16; Status DC Acetaminophen (Tylenol) 650 mg PRN Q6HRS PRN PO TEMP > 100.4F; Start 12/06/17 at 18:00 Acetaminophen (Tylenol Supp) 650 mg PRN Q4HRS PRN CO TEMP > 100.4F; Start 12/06 at 18:00 Aspirin (Ecotrin) 325 mg DAILYWBKFT PO ; Start 12/07/17 at 08:00; Status UNV Aspirin (Aspirin) 300 mg PRN DAILY PRN CO IF UNABLE TO TAKE PO; Start 12/06/17 at 18:00 Iohexol (Omnipaque 300 Mg/ml) 75 ml 1X ONCE IV Last administered on 12/06/17at 18:30; Start 12/06/17 at 18:30; Stop 12/06/17 at 18:31; Status DC Info (CONTRAST GIVEN -- Rx MONITORING) 1 each PRN DAILY PRN MC SEE COMMENTS; Start 12/06/17 at 18:45; Stop 12/08/17 at 18:44 Hydrochlorothiazide (Hydrodiuril) 25 mg DAILY PO ; Start 12/08/17 at 09:00 Lisinopril (Prinivil) 20 mg DAILY PO ; Start 12/08/17 at 09:00 Lisinopril (Prinivil) 10 mg 1X ONCE PO ; Start 12/07/17 at 09:30; Stop at 09:31; Status DC Hydrochlorothiazide (Microzide) 12.5 mg 1X ONCE PO ; Start 12/07/17 at 09:30; Stop 12/07/17 at 09:31; Status DC Vitals/I & O Vital Sign - Last 24 Hours 12/06/17 12/06/17 12/06/17 12/06/17 13:04 13:44 14:10 16:00 Temp 97.8 97.8 Pulse 92 92 68 Resp 18 16 B/P (MAP) 185/120 (141) 198/121 (146) 198/111 Pulse Ox 97 98 98 O2 Delivery Room Air Room Air Room Air 12/06/17 12/06/17 12/06/17 12/06/17 17:00 17:43 19:00 20:00 Temp 98.2 98.2 98.2 98.2 Pulse 59 64 Resp 18 19 B/P (MAP) 188/100 (129) 174/92 (119) Pulse Ox 97 95 O2 Delivery Room Air Room Air Room Air Room Air 12/06/17 12/06/17 12/07/17 12/07/17 21:00 22:46 03:00 07:53 Temp 98.3 97.5 98.3 97.5 Pulse 87 68 77 Resp 18 18 20 B/P (MAP) 162/87 (112) 146/84 (104) 170/93 (118) Pulse Ox 97 94 95 98 O2 Delivery Room Air Room Air Room Air Room Air 12/07/17 12/07/17 08:00 08:24 Pulse 77 B/P (MAP) 170/93 O2 Delivery Room Air Intake and Output 12/06/17 12/06/17 12/07/17 15:00 23:00 07:00 Intake Total 300 ml Output Total 300 ml Balance 0 ml YEISON HAY MD Dec 07, 2017 10:51
--- NOTE | 2017-12-07 11:31 | PDOC2 ---
[facility] [employer] 12/07/17 1131: CARDIAC CONSULT DATE OF CONSULT Date of Consult DATE: 12/07/17 TIME: 1000 REASON FOR CONSULT Reason for Consult: embolic CVA w/u, YAIR, linq REFERRING PHYSICIAN Referring Physician: Alex SOURCE Source: Chart review, Patient HISTORY OF PRESENT ILLNESS HISTORY OF PRESENT ILLNESS This is a pleasant 52 yo male admitted for complains of blurred vision. He has been having this episode on and off since Wednesday. No complains of auditory disturbances or periods of blindness. No symptoms of chest pain palpitations and no noted unilateral weakness, slurred speech, facial paresthesia or swallowing difficulty. Reports no hx of CVA, arrhythmias, or CAD. 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 He wishes to not have any further procedures here as he intends to go back to the [facility] the [facility] and find himself a PCP over there and get a air traffic controller center referral. His blurred vision has resolved and no further symptoms. He does not have a heart monitor in place but no noted AFIB upon admission but he has been noted with stroke. PAST MEDICAL HISTORY Cardiovascular: HTN (has not taken any medications for about 3 yrs now and used to take 2 meds. ), Hyperlipidemia Pulmonary: No pertinent hx CENTRAL NERVOUS SYSTEM: Other (No pertinenthistory) GI: No pertinent hx Heme/Onc: No pertinent hx Hepatobiliary: No pertinent hx Psych: No pertinent hx Musculoskeletal: Osteoarthritis ENT: No pertinent hx Renal/: No pertinent hx Endocrine: No pertinent hx Dermatology: No pertinent hx PAST SURGICAL HISTORY Past Surgical History: No pertinent history FAMILY HISTORY Family History: Family History Unknown SOCIAL HISTORY Smoke: <1 pack per day (>30 yrs) ALCOHOL: none Drugs: None Lives: Alone CURRENT MEDICATIONS CURRENT MEDICATIONS Current Medications Medications (Trade) Dose Ordered Sig/Leela Route PRN Reason Start Time Stop Time Status Last Admin Dose Admin Methylprednisolone Sodium Succinate (SOLU-Medrol 125MG VIAL) 125 mg 1X ONCE IM 12/06/17 13:15 12/06/17 13:18 DC 12/06/17 14:09 Albuterol/ Ipratropium (Duoneb) 3 ml 1X ONCE NEB 12/06/17 13:15 12/06/17 13:18 DC 12/06/17 13:41 Labetalol HCl (Normodyne Iv Push) 20 mg PRN Q2HR PRN IVP HYPERTENSION, SEE COMMENTS 12/06/17 15:45 12/06/17 16:00 Lisinopril (Prinivil) 10 mg DAILY PO 12/07/17 09:00 12/07/17 09:10 DC 12/07/17 08:24 Hydrochlorothiazide (Microzide) 12.5 mg DAILY PO 12/07/17 09:00 12/07/17 09:10 DC 12/07/17 08:23 Cetirizine HCl (ZyrTEC) 10 mg DAILY PO 12/06/17 15:45 12/07/17 08:23 Aspirin (Ecotrin) 325 mg 1X ONCE PO 12/06/17 15:45 12/06/17 15:53 DC 12/06/17 18:15 Aspirin (Ecotrin) 325 mg DAILYWBKFT PO 12/07/17 08:00 12/07/17 08:23 Albuterol/ Ipratropium (Duoneb) 3 ml RTQID NEB 12/06/17 16:00 12/06/17 21:00 Gadobutrol (Gadavist) 7.5 mmol 1X ONCE IV 12/06/17 16:15 12/06/17 16:16 DC 12/06/17 16:30 Iohexol (Omnipaque 300 Mg/ml) 75 ml 1X ONCE IV 12/06/17 18:30 12/06/17 18:31 DC 12/06/17 18:30 ALLERGIES ALLERGIES: Coded Allergies: No Known Drug Allergies (Unverified , 12/06/17) ROS Review of System 14 point ROS evaluated with pertinent positives noted per HPI PHYSICAL EXAM General: Alert, Oriented X3, Cooperative, No acute distress HEENT: Atraumatic, Mucous membr. moist/pink Lungs: Clear to auscultation, Normal air movement Heart: Regular rate (SR per EKG, RRR), Normal S1, Normal S2, Other (2/6 systolic murmur to apex) Abdomen: Soft, No tenderness Extremities: No cyanosis, No edema Skin: No breakdown, No significant lesion Neuro: Normal speech, Sensation intact Psych/Mental Status: Mental status NL, Mood NL MUSCULOSKELETAL: Osteoarthritic changes both hands VITALS VITALS Vital Signs Date Time Temp Pulse Resp B/P (MAP) Pulse Ox O2 Delivery O2 Flow Rate FiO2 12/07/17 08:24 77 170/93 12/07/17 08:00 Room Air 12/07/17 07:53 97.5 20 98 97.5 LABS Lab: Laboratory Tests Test 12/06/17 14:50 12/07/17 04:40 White Blood Count 10.0 x10^3/uL (4.0-11.0) 14.7 x10^3/uL (4.0-11.0) Red Blood Count 4.66 x10^6/uL (4.30-5.70) 4.41 x10^6/uL (4.30-5.70) Hemoglobin 14.4 g/dL (13.0-17.5) 13.5 g/dL (13.0-17.5) Hematocrit 41.8 % (39.0-53.0) 39.5 % (39.0-53.0) Mean Corpuscular Volume 90 fL (79-100) 90 fL (79-100) Mean Corpuscular Hemoglobin 31 pg (25-35) 31 pg (25-35) Mean Corpuscular Hemoglobin Concent 34 g/dL (31-37) 34 g/dL (31-37) Red Cell Distribution Width 14.7 % (11.5-14.5) 14.5 % (11.5-14.5) Platelet Count 274 x10^3/uL (140-400) 273 x10^3/uL (140-400) Neutrophils (%) (Auto) 65 % (31-73) 92 % (31-73) Lymphocytes (%) (Auto) 25 % (24-48) 6 % (24-48) Monocytes (%) (Auto) 7 % (0-9) 2 % (0-9) Eosinophils (%) (Auto) 3 % (0-3) 0 % (0-3) Basophils (%) (Auto) 1 % (0-3) 0 % (0-3) Neutrophils # (Auto) 6.5 x10^3uL (1.8-7.7) 13.4 x10^3uL (1.8-7.7) Lymphocytes # (Auto) 2.5 x10^3/uL (1.0-4.8) 0.9 x10^3/uL (1.0-4.8) Monocytes # (Auto) 0.6 x10^3/uL (0.0-1.1) 0.3 x10^3/uL (0.0-1.1) Eosinophils # (Auto) 0.3 x10^3/uL (0.0-0.7) 0.0 x10^3/uL (0.0-0.7) Basophils # (Auto) 0.1 x10^3/uL (0.0-0.2) 0.0 x10^3/uL (0.0-0.2) Sodium Level 138 mmol/L (136-145) 137 mmol/L (136-145) Potassium Level 3.9 mmol/L (3.5-5.1) 4.1 mmol/L (3.5-5.1) Chloride Level 102 mmol/L (98-107) 101 mmol/L (98-107) Carbon Dioxide Level 25 mmol/L (21-32) 24 mmol/L (21-32) Anion Gap 11 (6-14) 12 (6-14) Blood Urea Nitrogen 24 mg/dL (8-26) 26 mg/dL (8-26) Creatinine 1.3 mg/dL (0.7-1.3) 1.2 mg/dL (0.7-1.3) Estimated GFR (Cockcroft-Gault) 57.7 63.3 BUN/Creatinine Ratio 18 (6-20) 22 (6-20) Glucose Level 105 mg/dL (70-99) 128 mg/dL (70-99) Calcium Level 9.0 mg/dL (8.5-10.1) 9.2 mg/dL (8.5-10.1) Total Bilirubin 0.3 mg/dL (0.2-1.0) 0.3 mg/dL (0.2-1.0) Aspartate Amino Transf (AST/SGOT) 21 U/L (15-37) 16 U/L (15-37) Alanine Aminotransferase (ALT/SGPT) 27 U/L (16-63) 23 U/L (16-63) Alkaline Phosphatase 140 U/L (46-116) 113 U/L (46-116) Total Protein 7.6 g/dL (6.4-8.2) 7.2 g/dL (6.4-8.2) Albumin 3.8 g/dL (3.4-5.0) 3.4 g/dL (3.4-5.0) Albumin/Globulin Ratio 1.0 (1.0-1.7) 0.9 (1.0-1.7) Segmented Neutrophils % 78 % (35-66) Band Neutrophils % 14 % (0-9) Lymphocytes % 4 % (24-48) Monocytes % 4 % (0-10) Platelet Estimate Adequate (ADEQUATE) Triglycerides Level 27 mg/dL (0-150) Cholesterol Level 138 mg/dL (0-200) LDL Cholesterol, Calculated 92 mg/dL (0-100) VLDL Cholesterol, Calculated 5 mg/dL (0-40) Non-HDL Cholesterol Calculated 97 mg/dL (0-129) HDL Cholesterol 41 mg/dL (40-60) Cholesterol/HDL Ratio 3.4 Thyroid Stimulating Hormone (TSH) 2.898 uIU/mL (0.358-3.74) ECHOCARDIOGRAM ECHOCARDIOGRAM <Conclusion> The left ventricular systolic function is normal. The Ejection Fraction is 55-60%. There is normal LV segmental wall motion. Transmitral Doppler flow pattern is Grade I-abnormal relaxation pattern. Doppler and Color-flow revealed trace mitral regurgitation. There is no evidence of significant pericardial effusion. Injection of bubbles documented no interatrial shunt. DATE: 12/07/17 1030 ASSESSMENT/PLAN ASSESSMENT/PLAN 1. Acute CVA: involving right posterior temporal/occipital region. Blurred vision resolved. Neurology following 2. HTN: labile. Off 2 BP meds >3 yrs. EF and WM nml, neg bubble study. 3. Tobaccoism Recommendations 1. Lisinopril and HCTZ have been started. Discussed compliance. 2. Refused further w/u here as he wants to go back to [place] of the [facility] and establish PCP over there and have a cardiology referral I did discussed with him the potential cardioembolic nature of his CVA and is needing YAIR, and at least an event monitor but would prefer this w/u to be done at the [facility]. 3. Smoking cessation. Recommend at least low dose statin with LDL goal<70 4. Encouraged home BP monitoring. DASH diet. KEIKO VENEGAS MD 12/07/17 1422: CARDIAC CONSULT ASSESSMENT/PLAN ASSESSMENT/PLAN Patient seen and examined. Agree with RCP's assessment and plan. 2-D echo showed normal LV systolic function and bubble study negative for interatrial shunt. Consider loop recorder implantation as an outpatient - Patient would like to follow-up with PCP in [facility] and address this further Importance of smoking cessation reemphasized thank you for your consultation TAZ KANG APRN Dec 07, 2017 11:31 KEIKO VENEGAS MD Dec 07, 2017 14:22
[2017-12-07 11:51] VITALS: BP 156/92
[2017-12-07] MEDS ORDERED: ATORVASTATIN CALCIUM 10 MG TABLET. PO SCH (21:00)
[2017-12-08] MEDS ORDERED: hydroCHLOROthiazide 25 MG TABLET PO SCH (09:00)
[2017-12-08] MEDS ORDERED: LISINOPRIL 20 MG TABLET PO SCH (09:00)
== END 2017-12-07 11:35 | disposition left against medical advice (07) | DRG 66 ==
LOC: ER 12:57 → 6 SOUTH 15:14
PROVIDERS: ADMIT Internal Medicine; ATTEND Internal Medicine
DX: I63.9 Cerebral infarction, unspecified (principal); I16.0 Hypertensive urgency; I10 Essential (primary) hypertension; E78.5 Hyperlipidemia, unspecified; Z53.21 Procedure and treatment not carried out due to patient leaving prior to being seen by health care provider; M19.90 Unspecified osteoarthritis, unspecified site; F17.210 Nicotine dependence, cigarettes, uncomplicated; Z71.6 Tobacco abuse counseling; Z86.73 Personal history of transient ischemic attack (TIA), and cerebral infarction without residual deficits; Z82.0 Family history of epilepsy and other diseases of the nervous system; Z80.9 Family history of malignant neoplasm, unspecified; Z82.49 Family history of ischemic heart disease and other diseases of the circulatory system
CPT/HCPCS: 99285; C8929; 36415; 70450; 70496; 70498; 70553; 71046; 80053; 80061; 84443; 85007; 85025; 94640; 96372; 96374; 96375; A9585; J2930; J3490; J7620; Q9967